=== PATIENT | male | born 1950 | race Caucasian/White ===

== ENCOUNTER → 2017-06-03 | Outpatient (CLI) | payer MEDICARE ==
--- NOTE | 2017-06-04 08:35 | RADIOLOGY REPORT PS360 ---
US ABD(COMPLETE-MULTI ORGANS HISTORY: CIRRHOSIS,HEPATITIS C finished hep C treatment several years ago I Patient Age: 66 years: Male Ordering Physician: MARION HASKINS TECHNIQUE: Ultrasound abdomen complete COMPARISON :Ultrasound 07/24/2016 and, April 2007 FINDINGS Pancreas head body and medial tail appear normal in size. Mildly inhomogeneous fatty appearing pancreas. No focal mass or fluid collection. Liver.. Again note benign hepatic cystic appearing area towards left lobe measures up to 1.6 cm... Appears similar to last years study. This is been present since 2006 ultrasound with only minor incremental progression. No solid masses are seen at the liver. No biliary ductal dilatation. Very slight coarse architecture throughout liver again noted. Margin appears fairly smooth with only one area of some questionable nodularity.. Gallbladder. Minimal sludge. No calcified stones. Upper normal wall thickness. Common duct appears normal diameter 3 mm at hilum of liver. Nicely seen. Right kidney 10.5 cm in length. Cortex well-maintained. No hydronephrosis nor mass. IMPRESSION 1. Stable ultrasound liver since July 2016 Slightly coarse architecture liver again seen but no significant new findings. Benign cyst at the anterior liver, left lobe again observed. 2. No biliary ductal dilatation. 3. Gallbladder. No discrete stones only scant sludge and minimal debris
== END ==
LOC: RAD 05-31 08:00
DX: K74.60 Unspecified cirrhosis of liver (principal); B19.20 Unspecified viral hepatitis C without hepatic coma